=== PATIENT | female | born 1990 | race Caucasian/White ===

== ENCOUNTER 2019-10-06 19:38 | Emergency (ER) | payer MEDICAID ==
[~2019-10-06] VITALS: Ht 167.6 cm; Wt 86.4 kg
[2019-10-06 19:58] VITALS: BP 137/101
[2019-10-06] MEDS ORDERED: triamcinolone acetonide 40mg/ml inj IM ONE (20:35)
== END 2019-10-06 20:50 | disposition home or self-care (01) ==
LOC: ER 19:40
DX: L50.8 Other urticaria (principal); R21 Rash and other nonspecific skin eruption; Z98.890 Other specified postprocedural states; Z88.1 Allergy status to other antibiotic agents
CPT/HCPCS: 96372; 99283; J3301

== ENCOUNTER 2020-08-29 10:14 | Emergency (ER) | payer MEDICAID ==
[~2020-08-29] VITALS: Ht 165.1 cm; Wt 81.8 kg
[2020-08-29 10:48] VITALS: BP 137/98
--- NOTE | 2020-08-30 15:07 | NUR ---
Patient called with positive COVID results
== END 2020-08-29 11:47 | disposition home or self-care (01) ==
LOC: ER 10:14
DX: U07.1 COVID-19 (principal); J06.9 Acute upper respiratory infection, unspecified; Z98.890 Other specified postprocedural states; Z88.1 Allergy status to other antibiotic agents
CPT/HCPCS: 36415; 87635; 99283